=== PATIENT | female | born 2000 | race Caucasian/White ===

== ENCOUNTER 2020-09-16 19:17 | Emergency (ER) | payer BC ==
[~2020-09-16] VITALS: Ht 154.9 cm; Wt 54.5 kg
[2020-09-16] MEDS ORDERED: LISD20CA PO (19:51)
[2020-09-16] MEDS ORDERED: TRAZ-252 PO (19:51)
[2020-09-16] MEDS ORDERED: VENL50TA44 PO (19:51)
[2020-09-16 20:27] LABS: BASOPHILS % (AUTO) 0.6 % (0.0-2.0); EOSINOPHILS % (AUTO) 0.5 % (1.0-6.0); HEMATOCRIT 43.6 % (36-46); HEMOGLOBIN 14.6 g/dL (12.0-16.0); LYMPHOCYTES # (AUTO) 1.9 K/uL (1.0-4.8); LYMPHOCYTES % (AUTO) 17.9 % (22.0-44.0); MEAN CORPUSCULAR HEMOGLOBIN 31.1 pg (26.0-34.0); MEAN CORPUSCULAR HGB CONC 33.6 G/dL (31.0-37.0); MEAN CORPUSCULAR VOLUME 93 fL (80-100); MONOCYTES # (AUTO) 0.8 K/uL (0.1-1.0); MONOCYTES % (AUTO) 7.1 % (2.0-9.0); NEUTROPHILS # (AUTO) 7.8 K/uL (1.8-7.7); NEUTROPHILS % (AUTO) 73.9 % (40.0-70.0); PLATELET COUNT (AUTO) 430 K/uL (150-450); RED BLOOD CELL COUNT(AUTO) 4.71 MIL/uL (4.00-5.20); RED CELL DISTRIBUTION WIDTH 15.1 % (11.5-14.5)
[2020-09-16 20:46] LABS: ALANINE AMINOTRANSFERASE 22 U/L (12-78); CHLORIDE 102 mmol/L (98-107); POTASSIUM 3.4 mmol/L (3.5-5.1); SODIUM SERUM 141 mmol/L (136-145)
[2020-09-16 20:57] VITALS: BP 142/78
[2020-09-16 21:04] LABS: ALBUMIN 4.1 g/dL (3.4-5.0); ALKALINE PHOSPHATASE 90 U/L (46-116); ANION GAP 14 mmol/L (8-16); ASPARTATE AMINOTRANSFERASE 20 U/L (15-37); BILIRUBIN,TOTAL 0.4 mg/dL (0.1-1.0); CALCIUM, TOTAL 9.4 mg/dL (8.8-10.5); CARBON DIOXIDE 25 mmol/L (22-29); CREATININE 0.75 mg/dL (0.60-1.30); GLOMERULAR FILTR. RATE CALC > 60 mL/min (>60); GLUCOSE,RANDOM 102 mg/dL (70-110); HCG,QUANTITATIVE < 1 mIU/mL (0-6); TOTAL PROTEIN, SERUM 7.9 g/dL (6.4-8.2); UREA NITROGEN, BLOOD 6 mg/dL (7-18)
[2020-09-16] MEDS ORDERED: HALOPERIDOL 5 MG TABLET PO ONE (21:45)
[2020-09-16] MEDS ORDERED: LORazepam 2 MG TABLET PO ONE (21:45)
[2020-09-16] MEDS ORDERED: DiphenhydrAMINE HCL 50 MG/ML VIAL ONE (21:54)
[2020-09-16] MEDS ORDERED: LORazepam 2 MG/ML VIAL ONE (21:54)
[2020-09-16] MEDS ORDERED: HALOPERIDOL LACTATE 5 MG/ML VIAL ONE (21:54)
[2020-09-16] MEDS ORDERED: LORazepam 2 MG/ML VIAL IM ONE (22:00)
[2020-09-16] MEDS ORDERED: DiphenhydrAMINE HCL 50 MG/ML VIAL IM ONE (22:00)
[2020-09-16] MEDS ORDERED: HALOPERIDOL LACTATE 5 MG/ML VIAL IM ONE (22:00)
== END 2020-09-16 22:42 | disposition home or self-care (01) ==
LOC: EMS 19:20
DX: F41.9 Anxiety disorder, unspecified (principal); F32.9 Major depressive disorder, single episode, unspecified; R10.2 Pelvic and perineal pain
CPT/HCPCS: 80053; 84702; 85025; 96372; 99285; G0480; J1200; J1630; J2060